=== PATIENT | male | born 1940 | race Two or more races ===

== ENCOUNTER 2019-07-12 10:26 | Inpatient (IN) | payer OTHER ==
--- NOTE | 2019-07-12 11:29 | PDOC ---
History of Present Illness - General Chief Complaint: Injury Stated Complaint: FALL/HEADACHE Time Seen by Provider: 07/12/19 11:18 History Source: Patient - History of Present Illness Initial Comments: 07/12/19 12:48 78 y/o male with a PMHx of Parkinson's Dementia, Hypothyroidism, BPH here today s/p fall. @ bedside assists in history. Patient was walking in the hallway of his home last night when he said he felt dizzy lost his balance and fell onto his right side. Denies any pre-fall chest pain, shortness of breath, palpitations, visual changes. Patient was assisted by his and was able to ambulate to the bedroom. At baseline patient uses a walker to ambulate. Report he fell earlier this week but he wasn't dizzy at that time. H/o multiple falls over the last 2-3 years including fall w/L shoulder fracture a few years previous. Patient currently c/o lower back pain. Past History - Past Medical History Allergies/Adverse Reactions: Allergies Allergy/AdvReac Type Severity Reaction Status Date / Time No Known Allergies Allergy Verified 07/12/19 11:21 Home Medications: Ambulatory Orders Carbidopa/Levodopa [Carbidopa-Levodopa 25-100 Tab] 1 each PO TID 07/12/19 Finasteride [Proscar -] 5 mg PO DAILY 07/12/19 Fludrocortisone Acetate 0.1 mg PO DAILY 07/12/19 Levothyroxine [Synthroid -] 100 mcg PO DAILY 07/12/19 Meclizine HCl [Antivert -] 12.5 mg PO PRN 07/12/19 Tolterodine Tartrate LA [Detrol LA -] 4 mg PO DAILY 07/12/19 COPD: No - Psycho Social/Smoking Cessation Hx Smoking History: Unknown if ever smoked Have you smoked in the past 12 months: No Information on smoking cessation initiated: No Hx Alcohol Use: No Drug/Substance Use Hx: No Review of Systems - Review of Systems Constitutional: No: Chills, Fever HEENTM: No: Blurred Vision Respiratory: No: Cough, Shortness of Breath Cardiac (ROS): No: Chest Pain, Lightheadedness, Palpitations, Syncope ABD/GI: No: Constipated, Diarrhea, Nausea, Vomiting *Physical Exam - Vital Signs Last Vital Signs Temp Pulse Resp BP Pulse Ox 97.4 F L 77 16 155/74 100 07/12/19 10:40 07/12/19 10:40 07/12/19 10:40 07/12/19 10:40 07/12/19 10:40 - Physical Exam 07/12/19 12:55 Triage VS reviewed Awake, alert Pelvis stable, moves all 4 extremities L posterior thigh hematoma Sacral spine TTP, no other midline C-spine/L/T TTP or bony step offs CV: S1, S2, RRR Lungs CLTA B/L Abdomen soft, non-tender, (+) bowel sounds Heart Score/ECG Review - ECG Impressions Comment:: 07/12/19 16:17 HR 74, normal intervals, no deviations, no ALEX/STD/TWI ED Treatment Course - LABORATORY CBC & Chemistry Diagram: 07/12/19 12:40 07/12/19 12:40 Medical Decision Making - Medical Decision Making 07/12/19 13:06 78 y/o male s/p fall. Likely mechanical fall, however patient reports pre-fall lightheadedness. Will evaluate for pre-syncope, as well as sacral XR. Tylenol for pain control. Reassess. 07/12/19 14:57 HeadCT /C-spine CT negative No sacral fracture Labs unremarkable including Troponin (-) x1 EKG non-ischemic as documented in EKG section of EMR Patient reassessed @ bedside. Resting comfortably, VSS 07/12/19 14:59 Case d/w Dr. Daniel - as patient has repeated h/o falls and reports some concern about being able to care for him, will admit. Patient and patient's counseled on plan of care. Clinical Impression: Pre-syncope, H/o fall Discharge - Discharge Information Problems reviewed: Yes Clinical Impression/Diagnosis: Pre-syncope Condition: Fair - Admission Yes - Follow up/Referral - Patient Discharge Instructions - Post Discharge Activity
[2019-07-12 13:11] LABS: BASO % 0.6 % (0-2.0); EOS % 1.1 % (0-4.5); HEMATOCRIT 42.2 % (35.4-49); HEMOGLOBIN 14.3 GM/dL (11.7-16.9); LYMPH % 15.4 % (8-40); MCH 30.2 pg (25.7-33.7); MCHC 33.8 g/dl (32.0-35.9); MEAN CELL VOLUME 89.2 fl (80-96); MEAN PLT VOLUME 9.8 fl (7.5-11.1); MONO % 7.9 % (3.8-10.2); PLATELET COUNT 140 K/MM3 (134-434); RBC 4.73 M/mm3 (4.00-5.60); RDW 14.8 % (11.9-15.9); WHITE BLOOD COUNT 6.1 K/mm3 (4.0-10.0)
[2019-07-12 13:28] LABS: ACTIVATED PTT 33.3 SECONDS (25.2-36.5)
[2019-07-12 13:44] LABS: ALBUMIN 3.7 g/dl (3.4-5.0); ALK PHOS 82 U/L (45-117); ANION GAP 6 MMOL/L (8-16); BILIRUBIN,TOTAL 0.9 mg/dL (0.2-1); BLOOD UREA NITROGEN 13.6 mg/dL (7-18); CALCIUM 8.4 mg/dL (8.5-10.1); CHLORIDE 106 mmol/L (98-107); CO2 28 mmol/L (21-32); CREATININE 0.8 mg/dL (0.55-1.3); GLUCOSE,RANDOM 77 mg/dL (74-106); POTASSIUM 3.5 mmol/L (3.5-5.1); SGOT/AST 20 U/L (15-37); SGPT/ALT 11 U/L (13-61); SODIUM 141 mmol/L (136-145); TOT PROT 6.6 g/dl (6.4-8.2)
--- NOTE | 2019-07-12 17:02 | PDOC ---
Documentation entered by Carroll Larsen SCRIBE, acting as scribe for Pranav Valencia MD. Pranav Valencia MD: This documentation has been prepared by the Chava santoro Daniel, SCRIBE, under my direction and personally reviewed by me in its entirety. I confirm that the documentation accurately reflects all work, treatment, procedures, and medical decision making performed by me. Attending Attestation - Resident Resident Name: JuniorDebra - ED Attending Attestation I have performed the following: I have examined & evaluated the patient, The case was reviewed & discussed with the resident, I agree w/resident's findings & plan, Exceptions are as noted - HPI HPI: 07/12/19 13:00 The patient is an 78 year old female with a past medical history of Parkinsons disease, dementia, and hypothyroidism here today for evaluation s/p fall. Patients reports that the patient was walking last night when he felt lightheaded, lost his balance, and fell on his right side. Patients then assisted the patient to his bedroom. Patient notes one previous fall this week and states that he did not feel dizzy when he fell then. Unclear LOC. Patient denies headache. Denies fever, chills. Denies chest pain, shortness of breath. Denies nausea, vomiting, diarrhea, abdominal pain. Allergies: NKA PCP: Emerson Daniel - Physicial Exam PE: 07/12/19 13:00 GENERAL: Awake, alert, and fully oriented, in no acute distress HEAD: No signs of trauma EYES: PERRLA, EOMI, sclera anicteric, conjunctiva clear ENT: Auricles normal inspection, hearing grossly normal, nares patent, oropharynx clear without exudates. Moist mucosa NECK: Normal ROM, supple, no lymphadenopathy, JVD, or masses LUNGS: Breath sounds equal, clear to auscultation bilaterally. No wheezes, and no crackles HEART: Regular rate and rhythm, normal S1 and S2, no murmurs, rubs or gallops ABDOMEN: Soft, nontender, normoactive bowel sounds. No guarding, no rebound. No masses EXTREMITIES: Normal range of motion, no edema. No clubbing or cyanosis. No cords , erythema, or tenderness BACK: No midline spinal tenderness in cervical/thoracic region. +ttp in lumbar spine. +ecchymosis over L ischial tuberosity NEUROLOGICAL: Normal speech, cranial nerves intact, equal strength and sensation b/l, SKIN: Warm, Dry, normal turgor, no rashes or lesions noted. - Medical Decision Making 07/12/19 15:00 78yo M presents to the ED with back pain after syncopal episode and fall yesterday Labs and trauma w/u unremarkable Pt admitted to tele observation for arrhythmia monitoring Case discussed with Dr. Daniel by Dr. Pacheco who accepts the admission Case discussed in detail with admitting physician including history, physical exam and ancillary studies. Admitting physician has assumed care for the patient, will follow all pending diagnostics and will complete the evaluation and treatment.
[2019-07-12] MEDS ORDERED: MECLIZINE HCL 12.5 MG TABLET PO SCH (19:00)
[2019-07-12 19:47] LABS: INR 1.08 (0.83-1.09); PROTHROMBIN TIME (PATIENT) 12.8 SEC (9.7-13.0)
--- NOTE | 2019-07-12 20:12 | HP ---
Admitting History and Physical - Primary Care Physician PCP: Emerson Daniel - Admission Chief Complaint: fall History of Present Illness: frequent falling with h/o parkinson's today again fell with associated lightheadedness and hurt his sacrum came to er because pain was too bad History Source: Patient Limitations to Obtaining History: No Limitations - Past Medical History APARTMENT RENTAL CLERK: Yes: Parkinson's Cardiovascular: Yes: HTN Endocrine: Yes: Hypothyroidism - Smoking History Smoking history: Unknown if ever smoked Have you smoked in the past 12 months: No - Alcohol/Substance Use Hx Alcohol Use: No - Social History Usual Living Arrangement: Yes: With Spouse ADL: Family Assistance History of Recent Travel: No Home Medications - Allergies Allergies/Adverse Reactions: Allergies Allergy/AdvReac Type Severity Reaction Status Date / Time No Known Allergies Allergy Verified 07/12/19 11:21 - Home Medications Home Medications: Ambulatory Orders Carbidopa/Levodopa [Carbidopa-Levodopa 25-100 Tab] 1 each PO TID 07/12/19 Finasteride [Proscar -] 5 mg PO DAILY 07/12/19 Fludrocortisone Acetate 0.1 mg PO DAILY 07/12/19 Levothyroxine [Synthroid -] 100 mcg PO DAILY 07/12/19 Meclizine HCl [Antivert -] 12.5 mg PO PRN 07/12/19 Tolterodine Tartrate LA [Detrol LA -] 4 mg PO DAILY 07/12/19 Family Medical History Family History: Unremarkable Review of Systems - Review of Systems Constitutional: reports: No Symptoms Eyes: reports: No Symptoms HENT: reports: No Symptoms Neck: reports: No Symptoms Cardiovascular: reports: No Symptoms Respiratory: reports: No Symptoms Gastrointestinal: reports: No Symptoms Neurological: reports: Dizziness, Unsteady Gait, Weakness, Other (legs are sticky, unable to lift them off of ground) Physical Examination Vital Signs: Vital Signs Temperature 98.3 F 07/12/19 19:12 Pulse Rate 68 07/12/19 19:12 Respiratory Rate 18 07/12/19 19:12 Blood Pressure 161/78 07/12/19 19:12 O2 Sat by Pulse Oximetry (%) 98 07/12/19 19:12 Constitutional: Yes: Well Nourished, Calm Eyes: Yes: EOM Intact HENT: Yes: Normocephalic Neck: Yes: Trachea Midline Cardiovascular: Yes: Regular Rate and Rhythm Respiratory: Yes: CTA Bilaterally Gastrointestinal: Yes: Normal Bowel Sounds, Soft Musculoskeletal: Yes: Back Pain Extremities: Yes: WNL Edema: No Neurological: Yes: Unsteady Gait, Other (no focal deficit) Psychiatric: Yes: WNL Labs: CBC, BMP 07/12/19 12:40 07/12/19 12:40 Imaging - Results Cat Scan: Report Reviewed (head ct no acute disease ct dervical and lumbar spine degenerative disc disease) EKG: Report Reviewed Problem List - Problems (1) Parkinson disease Code(s): G20 - PARKINSON'S DISEASE (2) Hypothyroid Problems reviewed: Yes Code(s): E03.9 - HYPOTHYROIDISM, UNSPECIFIED Qualifiers: Hypothyroidism type: unspecified Qualified Code(s): E03.9 - Hypothyroidism , unspecified (3) Pre-syncope Problems reviewed: Yes Code(s): R55 - SYNCOPE AND COLLAPSE Assessment/Plan likely parkinson's related check echo and carotids check orthostatic hypotension needs physical therapy
[2019-07-12 22:35] VITALS: BMI 29.0
[2019-07-12] MEDS: CARBIDOPA/LEVODOPA 25/100 TABLET (FP) PO SCH (22:53)
[2019-07-13] MEDS: LEVOTHYROXINE NA 100 MCG TABLET (FP) PO SCH (06:31)
[2019-07-13] MEDS: CARBIDOPA/LEVODOPA 25/100 TABLET (FP) PO SCH ×3 (06:31→21:15)
[2019-07-13] MEDS: FINASTERIDE 5 MG TABLET (FP) PO SCH (09:07)
[2019-07-13] MEDS ORDERED: FLUDROCORTISONE ACETATE 0.1 MG TABLET (FP) PO SCH (10:00)
--- NOTE | 2019-07-13 11:23 | EKG ---
Test Reason : Blood Pressure : / mmHG Vent. Rate : 074 BPM Atrial Rate : 074 BPM P-R Int : 130 ms QRS Dur : 102 ms QT Int : 382 ms P-R-T Axes : 030 -44 024 degrees QTc Int : 424 ms NORMAL SINUS RHYTHM LEFT AXIS DEVIATION ABNORMAL ECG NO PREVIOUS ECGS AVAILABLE Confirmed by Ry Blake MD ([id number]) on 07/13/2019 11:22:25 AM Referred By: Confirmed By:Ry Blake MD
--- NOTE | 2019-07-13 12:11 | PN ---
Progress Note (short form) - Note Progress Note: did not do well with pt, has difficulty walking going for echo and carotid us Vital Signs Period Temp Pulse Resp BP Sys/Duckworth Pulse Ox Last 24 Hr 97.4 F-98.3 F 68-85 18-20 133-172/73-91 97-98 s1s2 rrr lungs cta abd soft no edema no edema no focal deficit, bradykinesia present aaox3 parkinson's ds htn hypothyroidism phyical therapy echo, carotid likely will need str stop fludrocortisone stop meclizine Problem List - Problems (1) Parkinson disease Code(s): G20 - PARKINSON'S DISEASE (2) Hypothyroid Code(s): E03.9 - HYPOTHYROIDISM, UNSPECIFIED Qualifiers: Hypothyroidism type: unspecified Qualified Code(s): E03.9 - Hypothyroidism , unspecified (3) Pre-syncope Code(s): R55 - SYNCOPE AND COLLAPSE
[2019-07-13] MEDS: TOLTERODINE TARTRATE LA 4 MG CAP.SR.24H (FP) PO SCH (13:46)
[2019-07-13] MEDS: LOSARTAN POTASSIUM 25 MG TABLET PO SCH (13:48)
--- NOTE | 2019-07-13 15:21 | ECHO ---
Name: KYLE BARILLAS Exam:Adult Echocardiogram Study Date: 07/13/2019 10:19 AM Age: 78 yrs Reason For Study: SYNCOPE Height: 60 in Weight: 150 lb BSA: 1.7 m2 MMode/2D Measurements & Calculations IVSd: 0.95 cm Ao root diam: 3.2 cm LVIDd: 3.3 cm LVIDs: 2.2 cm LVPWd: 0.92 cm EDV(Teich): 45.6 ml LVOT diam: 2.0 cm ESV(Teich): 16.1 ml LAV (MOD-bp): 34.6 ml Doppler Measurements & Calculations MV E max jimbo: 56.8 cm/sec Ao V2 max: 122.2 cm/sec MV A max jimbo: 91.2 cm/sec Ao max P.0 mmHg MV E/A: 0.62 AI P1/2t: 612.7 msec MV dec time: 0.11 sec LORI(V,D): 2.1 cm2 AI max jimbo: 389.5 cm/sec LV V1 max P.8 mmHg AI max P.0 mmHg LV V1 max: 82.9 cm/sec AI dec slope: 186.2 cm/sec2 TR max jimbo: 207.7 cm/sec PA V2 max: 82.8 cm/sec TR max P.3 mmHg PA max P.7 mmHg Med Peak E' Jimbo: 4.6 cm/sec PI Vmax: 99.1 cm/sec Med E/e': 12.4 Lat Peak E' Jimbo: 6.4 cm/sec Lat E/e': 8.8 Procedure A two-dimensional transthoracic echocardiogram with color flow and Doppler was performed. The study w as technically difficult with many images being suboptimal in quality. Left Ventricle The left ventricular size, thickness and function are normal. The left ventricle is not well visualiz ed. The left ventricular ejection fraction is normal. Regional wall motion abnormalities cannot be excluded d ue to limited visualization. Right Ventricle The right ventricle is not well visualized. Atria The left atrium is not well visualized. Right atrium not well visualized. Mitral Valve There is mild mitral valve thickening. There is no mitral valve stenosis. There is trace mitral regur gitation. Tricuspid Valve The tricuspid valve is not well visualized. There is no tricuspid stenosis. There is trace tricuspid regurgitation. Right ventricular systolic pressure is normal. Aortic Valve The aortic valve is not well visualized. No hemodynamically significant valvular aortic stenosis. No aortic regurgitation is present. Pulmonic Valve The pulmonic valve is not well visualized. Great Vessels The aortic root is normal size. Pericardium/Pleura There is no pericardial effusion. Interpretation Summary The left ventricular size, thickness and function are normal The left ventricular ejection fraction is normal. There is trace tricuspid regurgitation. Right ventricular systolic pressure is normal. The study was technically difficult with many images being suboptimal in quality. Regional wall motion abnormalities cannot be excluded due to limited visualization. There is trace mitral regurgitation. MD New Lozano 07/13/2019 03:20 PM
[2019-07-13] MEDS ORDERED: PT OWN MED DRAWER 7, Y5N ONE ×2 (17:43→21:01)
--- NOTE | 2019-07-13 22:44 | CON.NEURO ---
Consult Consult Specialty:: NEUROLOGY-RACHEL FORBES - History of Present Illness History of Present Illness: 78 y/o male with a PMHx of Parkinson's Dementia, Hypothyroidism, BPH here today s/p fall. @ bedside assists in history. Patient was walking in the hallway of his home last night when he said he felt dizzy lost his balance and fell onto his right side. Denies any pre-fall chest pain, shortness of breath, palpitations, visual changes. Patient was assisted by his and was able to ambulate to the bedroom. At baseline patient uses a walker to ambulate. Report he fell earlier this week but he wasn't dizzy at that time. H/o multiple falls over the last 2-3 years including fall w/L shoulder fracture a few years previous. Patient currently c/o lower back pain. Meclizine/ Fludrocortisone d/roxy during this hosp. Mr. Longoria is known to me-he began feeling imbalanced 2 years ago and began falling at that time, he had mild subcortical ischemic dz. upon imaging and x 1 year has been ambulating with a walker, last saw him a year ago. 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 X 4-6 months states has been on Sinemet-this he says reduces the "heaviness" in his legs for about 2 hours after intake. Denies all other neurologic symptoms. Past History - Past Medical History Allergies/Adverse Reactions: Allergies Allergy/AdvReac Type Severity Reaction Status Date / Time No Known Allergies Allergy Verified 07/12/19 11:21 Home Medications: Ambulatory Orders Carbidopa/Levodopa [Carbidopa-Levodopa 25-100 Tab] 1 each PO TID 07/12/19 Finasteride [Proscar -] 5 mg PO DAILY 07/12/19 Fludrocortisone Acetate 0.1 mg PO DAILY 07/12/19 Levothyroxine [Synthroid -] 100 mcg PO DAILY 07/12/19 Meclizine HCl [Antivert -] 12.5 mg PO PRN 07/12/19 Tolterodine Tartrate LA [Detrol LA -] 4 mg PO DAILY 07/12/19 - Past Medical History STATISTICAL ASSISTANT: Yes: Parkinson's Cardio/Vascular: Yes: HTN Endocrine: Yes: Hypothyroidism - Alcohol/Substance Use Hx Alcohol Use: No - Smoking History Smoking history: Unknown if ever smoked Have you smoked in the past 12 months: No - Social History ADL: Family Assistance History of Recent Travel: No Home Medications - Allergies Allergies/Adverse Reactions: Allergies Allergy/AdvReac Type Severity Reaction Status Date / Time No Known Allergies Allergy Verified 07/12/19 11:21 - Home Medications Home Medications: Ambulatory Orders Carbidopa/Levodopa [Carbidopa-Levodopa 25-100 Tab] 1 each PO TID 07/12/19 Finasteride [Proscar -] 5 mg PO DAILY 07/12/19 Fludrocortisone Acetate 0.1 mg PO DAILY 07/12/19 Levothyroxine [Synthroid -] 100 mcg PO DAILY 07/12/19 Meclizine HCl [Antivert -] 12.5 mg PO PRN 07/12/19 Tolterodine Tartrate LA [Detrol LA -] 4 mg PO DAILY 07/12/19 Physical Exam-Neuro Vital Signs: Vital Signs Temperature 98.3 F 07/13/19 22:00 Pulse Rate 72 07/13/19 22:00 Respiratory Rate 20 07/13/19 22:00 Blood Pressure 140/83 07/13/19 22:00 O2 Sat by Pulse Oximetry (%) 96 07/13/19 21:00 Labs: CBC, BMP 07/12/19 12:40 07/12/19 12:40 INR, PTT INR 1.08 (0.83-1.09) 07/12/19 12:40 - Neuro Exam Level Of Consciousness: Yes: Alert, Oriented to Person, Oriented to Place Eyes: Yes: PERRL Speech: Other (mildly hypophonic) Dominant Hand: Right Mini Mental Exam: Mildly impaired attention/concentration/STM Cranial Nerves II-XII Intact: Yes Gag: Present DTR's: 2+ Left Bicep, 2+ Right Bicep, 2+ Left Tricep, 2+ Right Tricep, 2+ Left Brachioradialis, 2+ Right Brachioradialis, 2+ Left Achilles, 2+ Right Achilles ( Bilat knees- 3+) Movement Disorders: Other (NO tremors noted) Motor Strength: 5/5: Left Arm, Right Arm, Left Leg, Right Leg (Tone is markedly increased in both legs but no cogwheel rigidity) Gait: Other (Atands with assistance+ pull test) Imaging - Results Cat Scan: Report Reviewed (7mm right occipital bone [id number]?/ etiology, C5 fusion) Assessment/Plan Pt. 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 Suggest: for now increase Sinemet to 4x/day and as outpt. can change to Rytary-truly long acting Levodopa, the 95mg tablet qid. In addition can give trial of Neupro patch starting with 2mg q 24 hours and increase after a week to 4mg q24 hrs, also as outpt. Thank you, Audelia Li MD
[2019-07-14] MEDS ORDERED: PT OWN MED DRAWER 7, Y5N ONE ×4 (04:35→21:32)
[2019-07-14] MEDS: LEVOTHYROXINE NA 100 MCG TABLET (FP) PO SCH (06:00)
[2019-07-14] MEDS: CARBIDOPA/LEVODOPA 25/100 TABLET (FP) PO SCH ×4 (06:00→21:33)
[2019-07-14] MEDS: LOSARTAN POTASSIUM 25 MG TABLET PO SCH (09:41)
[2019-07-14] MEDS: FINASTERIDE 5 MG TABLET (FP) PO SCH (09:41)
--- NOTE | 2019-07-14 10:54 | DS ---
Physical Examination Vital Signs: Vital Signs Temperature 97.8 F 07/14/19 10:10 Pulse Rate 67 07/14/19 10:10 Respiratory Rate 18 07/14/19 10:10 Blood Pressure 144/77 07/14/19 10:10 O2 Sat by Pulse Oximetry (%) 98 07/14/19 09:45 Constitutional: Yes: Calm Eyes: Yes: EOM Intact HENT: Yes: Normocephalic Neck: Yes: Trachea Midline Cardiovascular: Yes: Regular Rate and Rhythm Respiratory: Yes: CTA Bilaterally Gastrointestinal: Yes: Normal Bowel Sounds, Soft Extremities: Yes: WNL Edema: No Neurological: Yes: Other (bradykinesia and generalized weakness present) Labs: CBC, BMP 07/12/19 12:40 07/12/19 12:40 Discharge Summary Problems reviewed: Yes Reason For Visit: BACK PAIN;PRE-SYNCOPE;FALL Current Active Problems Hypothyroid (Acute) Parkinson disease (Acute) Pre-syncope (Acute) Hospital Course: 78 yo man with parkinsonism and htn and hypothyroidism admitted after nearsyncopal fall, vitals, ekg, echo, carotid, head ct and ct of c and l spine is unremarkable-ddd and mild spina bifida needs phyical therapy neurological evaluation appreciated, increased sinemet outpt f/up Condition: Fair - Instructions Diet, Activity, Other Instructions: can change sinemet to Rytary 95 mg tablet qid as outpt add neupro patch 2 mg q24 h and increase to 4 mg q24hrs in a week Referrals: Emerson Daniel MD [Primary Care Provider] - Disposition: HALFWAY FACILITY - Home Medications Comprehensive Discharge Medication List: Ambulatory Orders Carbidopa/Levodopa [Carbidopa-Levodopa 25-100 Tab] 1 each PO TID 07/12/19 Finasteride [Proscar -] 5 mg PO DAILY 07/12/19 Fludrocortisone Acetate 0.1 mg PO DAILY 07/12/19 Levothyroxine [Synthroid -] 100 mcg PO DAILY 07/12/19 Meclizine HCl [Antivert -] 12.5 mg PO PRN 07/12/19 Tolterodine Tartrate LA [Detrol LA -] 4 mg PO DAILY 07/12/19
[2019-07-14] MEDS: TOLTERODINE TARTRATE LA 4 MG CAP.SR.24H (FP) PO SCH (10:58)
[2019-07-15] MEDS: LEVOTHYROXINE NA 100 MCG TABLET (FP) PO SCH (06:31)
[2019-07-15] MEDS ORDERED: PT OWN MED DRAWER 7, Y5N ONE (08:23)
--- NOTE | 2019-07-15 08:49 | PN ---
Progress Note (short form) - Note Progress Note: CBC, BMP 07/12/19 12:40 07/12/19 12:40 Vital Signs Period Temp Pulse Resp BP Sys/Duckworth Pulse Ox Last 24 Hr 97.1 F-98.7 F 67-86 18-20 124-162/69-88 96-98 s1s2 rrr lungs cta abd soft no edema no edema no focal deficit, bradykinesia present aaox3 parkinson's ds htn hypothyroidism physical therapy awaiting discharge Problem List - Problems (1) Parkinson disease Code(s): G20 - PARKINSON'S DISEASE (2) Hypothyroid Code(s): E03.9 - HYPOTHYROIDISM, UNSPECIFIED Qualifiers: Hypothyroidism type: unspecified Qualified Code(s): E03.9 - Hypothyroidism , unspecified (3) Pre-syncope Code(s): R55 - SYNCOPE AND COLLAPSE
[2019-07-15] MEDS: FINASTERIDE 5 MG TABLET (FP) PO SCH (10:31)
[2019-07-15] MEDS: LOSARTAN POTASSIUM 25 MG TABLET PO SCH (10:31)
[2019-07-15] MEDS: TOLTERODINE TARTRATE LA 4 MG CAP.SR.24H (FP) PO SCH (10:31)
[2019-07-15] MEDS: CARBIDOPA/LEVODOPA 25/100 TABLET (FP) PO SCH ×3 (10:32→17:35)
[2019-07-15 19:55] VITALS: BP 148/89; PULSE 88; TEMP 97.9
== END 2019-07-15 21:55 | DRG 57 ==
LOC: JER 10:26 → JERBED 14:55 → J5S 20:40 → J4W 21:53
PROVIDERS: ADMIT Internal Medicine; ATTEND Internal Medicine
DX: G20 Parkinson's disease (principal); F02.80 Dementia in other diseases classified elsewhere, unspecified severity, without behavioral disturbance, psychotic disturbance, mood disturbance, and anxiety; E03.9 Hypothyroidism, unspecified; N40.0 Benign prostatic hyperplasia without lower urinary tract symptoms; R55 Syncope and collapse; Q05.9 Spina bifida, unspecified; W19.XXXA Unspecified fall, initial encounter
CPT/HCPCS: 36415; 70450-TC; 72125-TC; 72131-TC; 80053; 82550; 82962; 84484; 85025; 85610; 85730; 93005; 93010; 93306-TC; 93880-TC; 97116-GP; 97162-GP; 99284-25